=== PATIENT | male | born 1980 | race Caucasian/White ===

== ENCOUNTER 2016-12-10 19:30 | Emergency (ER) | payer SELFPAY ==
[~2016-12-10] VITALS: Ht 193 cm; Wt 113.4 kg
[~2016-12-10 19:30] MED LIST: AMOX1TAB61 PO; DEXA4TAB PO; DEXA6TAB PO
[2016-12-10 19:32] VITALS: BP 156/106
[2016-12-10] MEDS ORDERED: LIDOCAINE 1%/EPI 1:100,000 20 ML VIAL. ONE (19:40)
[2016-12-10] MEDS ORDERED: fentaNYL PF VIAL 100 MCG/2 ML VIAL ONE ×2 (19:41→19:47)
[2016-12-10] MEDS ORDERED: ONDANSETRON PF 4 MG/2 ML VIAL. ONE (19:41)
[2016-12-10] MEDS ORDERED: ONDANSETRON PF 4 MG/2 ML VIAL. IV ONE (19:45)
[2016-12-10] MEDS ORDERED: LIDOCAINE 1%/EPI 1:100,000 20 ML VIAL. INJ ONE ×2 (19:45→20:00)
[2016-12-10] MEDS ORDERED: fentaNYL PF VIAL 100 MCG/2 ML VIAL IV ONE ×3 (19:45→22:15)
[2016-12-10] MEDS ORDERED: BACITRACIN/POLYMYXIN B OPHTH OINTMENT 3.5GM TUBE. ONE (20:22)
[2016-12-10] MEDS ORDERED: NEOMY/BACITR/POLYMYXIN OINT PACKET. TP ONE (20:24)
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
[2016-12-10] MEDS ORDERED: DIPHTH,PERTUSS(ACELL),TET TOX 0.5 ML DISP.SYRIN. VAX IM ONE (22:30)
[2016-12-10] MEDS ORDERED: IBUP-1060 PO (23:00)
[2016-12-10] MEDS ORDERED: HYDR-971 PO (23:00)
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
== END 2016-12-10 23:43 | disposition home or self-care (01) ==
LOC: ER 19:30
DX: S01.01XA Laceration without foreign body of scalp, initial encounter (principal); S40.812A Abrasion of left upper arm, initial encounter; S40.811A Abrasion of right upper arm, initial encounter; V29.40XA Motorcycle driver injured in collision with unspecified motor vehicles in traffic accident, initial encounter; Y93.I9 Activity, other involving external motion; Y92.410 Unspecified street and highway as the place of occurrence of the external cause; Y99.8 Other external cause status
CPT/HCPCS: 12005; 70450; 72125; 90471; 90715; 96374; 96375; 99284; J2405; J3010; J3490

== ENCOUNTER 2016-12-26 06:37 | Emergency (ER) | payer SELFPAY ==
[~2016-12-26 06:37] MED LIST changes: +HYDR-971 PO; +IBUP-1060 PO
[2016-12-26 06:52] VITALS: BP 136/94
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
== END 2016-12-26 07:18 | disposition home or self-care (01) ==
LOC: ER 06:37
DX: S01.01XD Laceration without foreign body of scalp, subsequent encounter (principal); V89.2XXD Person injured in unspecified motor-vehicle accident, traffic, subsequent encounter; Y92.488 Other paved roadways as the place of occurrence of the external cause; Y99.8 Other external cause status
CPT/HCPCS: 99281

== ENCOUNTER 2017-01-03 01:38 | Emergency (ER) | payer SELFPAY ==
[~2017-01-03] VITALS: Ht 193 cm; Wt 136.1 kg
[2017-01-03 01:59] VITALS: BP 147/92
[2017-01-03] MEDS ORDERED: SULF1TAB24 PO (02:37)
[2017-01-03] MEDS ORDERED: CEPH-264 PO (02:37)
[2017-01-03] MEDS ORDERED: HYDR-971 PO (02:37)
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
[2017-01-03] MEDS ORDERED: HYDROmorphone 2 MG/ML VIAL IM ONE (03:00)
== END 2017-01-03 02:49 | disposition home or self-care (01) ==
LOC: ER 01:38
DX: L03.113 Cellulitis of right upper limb (principal)
CPT/HCPCS: 96372; 99283; J1170